=== PATIENT | female | born 2000 | race African-American/Black ===

== ENCOUNTER 2024-09-05 02:23 | Emergency (ER) | payer BC ==
[~2024-09-05] VITALS: Ht 167.6 cm; Wt 56.7 kg
[2024-09-05] MEDS ORDERED: ALBUTEROL/IPRATROPIUM 3 ML NEB ONE (02:43)
[2024-09-05] MEDS: METHYLPREDNISOLONE SOD SUCC 125 MG/2ML VIAL IV ONE (02:56)
[2024-09-05] MEDS: ALBUTEROL/IPRATROPIUM 3 ML NEB NEB ONE (02:57)
[2024-09-05] MEDS: SODIUM CHLORIDE 0.9% 1000ML 1,000 ML IV SCH (02:57)
[2024-09-05] MEDS: ALBUTEROL SULF 0.083% NEB SOLN 3 ML NEB NEB STA ×2 (03:30)
[2024-09-05] MEDS: MAGNESIUM SULFATE 2GM/50ML 50 ML IV ONE (03:36)
[2024-09-05] MEDS ORDERED: VENTOLIN HFA18 GM INH (05:53)
[2024-09-05] MEDS ORDERED: PREDNISONE20 MG PO (05:55)
[2024-09-05] MEDS ORDERED: SYMBICORT 16010.2 GM INH (05:58)
[2024-09-05 06:00] VITALS: PULSE 78; RESP 16; TEMP 97.8
[2024-09-05 06:07] VITALS: BP 114/64; PULSE 78; RESP 16; TEMP 97.8; O2SAT 98
== END 2024-09-05 06:10 | disposition home or self-care (01) ==
LOC: FSED 02:38
DX: R06.02 Shortness of breath (principal); J45.902 Unspecified asthma with status asthmaticus; R07.89 Other chest pain; F17.210 Nicotine dependence, cigarettes, uncomplicated
CPT/HCPCS: 71046; 80053; 81025; 85025; 94760; 96374; 99284; J2919; J3475; J7030

== ENCOUNTER 2025-03-26 23:17 | Emergency (ER) | payer BC ==
[~2025-03-26] VITALS: Ht 167.6 cm; Wt 47.6 kg
[~2025-03-26 23:17] MED LIST: PREDNISONE20 MG PO; SYMBICORT 16010.2 GM INH; VENTOLIN HFA18 GM INH
[2025-03-26 23:21] VITALS: PULSE 94; RESP 18; TEMP 98.4
[2025-03-26] MEDS ORDERED: SYMBICORT 16010.2 GM INH (23:36)
[2025-03-26] MEDS ORDERED: VENTOLIN HFA18 GM INH (23:36)
[2025-03-26] MEDS ORDERED: PREDNISONE20 MG PO (23:36)
[2025-03-27] MEDS: ALBUTEROL/IPRATROPIUM 3 ML NEB NEB STA ×2 (00:02→00:05)
[2025-03-27] MEDS: PREDNISONE 20 MG TAB PO STA (00:02)
[2025-03-27 00:35] VITALS: BP 131/72; PULSE 94; RESP 18; TEMP 98.4; O2SAT 95
== END 2025-03-27 00:35 | disposition home or self-care (01) ==
LOC: FSED 23:18
DX: R06.02 Shortness of breath (principal); J45.901 Unspecified asthma with (acute) exacerbation; F17.210 Nicotine dependence, cigarettes, uncomplicated
CPT/HCPCS: 99282; J7512

== ENCOUNTER 2025-05-26 18:54 | Emergency (ER) | payer BC ==
[~2025-05-26] VITALS: Ht 167.6 cm; Wt 50.3 kg
[2025-05-26 19:31] VITALS: PULSE 90; RESP 18; TEMP 98.2
[2025-05-26] MEDS ORDERED: HYDROCODON-ACE1 EA11 PO (19:56)
[2025-05-26 20:55] VITALS: BP 134/69; PULSE 90; RESP 18; TEMP 98.2; O2SAT 98
== END 2025-05-26 20:17 | disposition home or self-care (01) ==
LOC: FSED 18:58
DX: M25.562 Pain in left knee (principal); V89.2XXD Person injured in unspecified motor-vehicle accident, traffic, subsequent encounter; J45.909 Unspecified asthma, uncomplicated
CPT/HCPCS: 99283